=== PATIENT | male | born 1970 | race Caucasian/White ===

== ENCOUNTER 2017-09-18 16:19 | Emergency (ER) | payer BC ==
[2017-09-18 16:25] VITALS: TEMP 100.9
[2017-09-18 16:35] LABS: BASO % 0.3 % (0.0-2.0); EOS % 0.3 % (0-4.0); GRAN # 13.3 (1.4-6.5); GRAN % 87.2 % (42.2-75.2); HEMATOCRIT 45.2 % (42.0-52.0); HEMOGLOBIN 15.6 g/dl (13.5-18.0); LYMPH # 0.8 (1.2-3.4); LYMPH % 5.3 % (20.0-51.0); MEAN CELL VOLUME 86 fl (80.0-100.0); MEAN CORPUSCULAR HEMOGLOBIN 30 pg (27.0-31.0); MEAN CORPUSCULAR HGB CONC 35 g/dl (33.0-37.0); MEAN PLATELET VOLUME 10.5 fl (7.4-10.4); MONO % 6.6 % (1.7-9.3); PLATELET COUNT 203 K/mm3 (130-400); RED BLOOD COUNT 5.24 M/mm3 (4.20-5.60); WHITE BLOOD COUNT 15.2 K/mm3 (4.8-10.8)
[2017-09-18 16:40] LABS: INR 1.1 (0.8-3.0); PROTHROMBIN TIME 12.1 SECONDS (9.7-12.8)
[2017-09-18 16:55] LABS: ADJUSTED CALCIUM 9.7 mg/dL (8.4-10.2); ALANINE AMINOTRANSFERASE 27 U/L (21-72); ALBUMIN 4.8 gm/dL (3.5-5.0); ALKALINE PHOSPHATASE 97 U/L (50-136); ANION GAP 14 mmol/L (7-16); BILIRUBIN,TOTAL 0.9 mg/dL (0.0-1.0); BLOOD UREA NITROGEN 21 mg/dL (9-20); CALCIUM 10.3 mg/dL (8.4-10.2); CARBON DIOXIDE 19 mmol/L (22-30); CHLORIDE 107 mmol/L (98-107); CREATININE, serum 0.87 mg/dL (0.66-1.25); GLUCOSE 100 mg/dL (74-106); POTASSIUM 3.7 mmol/L (3.4-5.0); SODIUM 139 mmol/L (137-145)
[2017-09-18 16:57] LABS: INFLUENZA A NEGATIVE; INFLUENZA B NEGATIVE
[2017-09-18 17:17] LABS: B-TYPE NATRIURETIC PEPTIDE 38 pg/mL (0-125)
[2017-09-18 17:22] LABS: TROPONIN-I < 0.012 ng/mL (0.000-0.034)
[2017-09-18] MEDS ORDERED: LEVAQUIN 750MG750 M1 PO (17:51)
[2017-09-18] MEDS ORDERED: PROAIR HFA0.09 MG/AC IH (17:51)
[2017-09-18 17:57] VITALS: BP 133/83; PULSE 99
== END 2017-09-18 18:27 | disposition home or self-care (01) ==
LOC: COL.ER 16:19
PROVIDERS: Emergency Medicine
DX: J20.9 Acute bronchitis, unspecified (principal); R07.89 Other chest pain; F17.210 Nicotine dependence, cigarettes, uncomplicated
CPT/HCPCS: J1170; J1885; J7030; J8540

== ENCOUNTER 2020-11-29 11:11 | Day surgery (SDC) | payer OTHER ==
[~2020-11-29] VITALS: Ht 193 cm; Wt 101.6 kg
[~2020-11-29 11:11] MED LIST: LEVAQUIN 750MG750 M1 PO; PROAIR HFA0.09 MG/AC IH
[2020-11-29 12:20] VITALS: BP 140/90; PULSE 91; TEMP 97.9
[2020-11-29] MEDS ORDERED: NEURONTIN600 MG/TAB PO (12:36)
[2020-11-29] MEDS ORDERED: FLEXERIL 1010 MG/TAB PO (12:37)
[2020-11-29] MEDS ORDERED: RETIN A 0.01% TP (12:39)
[2020-11-29 14:32] VITALS: BP 120/81; PULSE 88
--- NOTE | 2020-11-29 14:32 | NUR ---
Patient returns to room 2 per cart from surgery accompanied by Luh KWOK and Jesus Hamilton CRNA. Patient is awake and alert. IV fluids infusing. Gauze 4x4 dressing over umbilical area dry. Temp 97.4 and room air sats 95%. Siderails up x2 and call light in reach.
[2020-11-29] MEDS ORDERED: NORCO 325 MG-51 TAB PO (14:35)
[2020-11-29 14:47] VITALS: BP 118/79; PULSE 64
--- NOTE | 2020-11-29 14:47 | NUR ---
Drinking water and denies pain or nausea. IV fluids infusing.
[2020-11-29 15:02] VITALS: BP 124/79; PULSE 87
--- NOTE | 2020-11-29 15:02 | NUR ---
Eating toast and drinking Sprite and water. Denies pain or nausea.
[2020-11-29 15:17] VITALS: BP 120/81; PULSE 68
--- NOTE | 2020-11-29 15:17 | NUR ---
IV discontinued site is free of redness. Notified ride of discharge time.
[2020-11-29 15:32] VITALS: BP 132/81; PULSE 87
--- NOTE | 2020-11-29 15:32 | NUR ---
Patient dresses self. Given dismissal instructions and voices understanding of these. Awaits ride home.
--- NOTE | 2020-11-29 15:57 | NUR ---
Dismissed to home driven by spouse and taken to vehicle per wheelchair by Delisa KWOK and assisted into vehilce with instructions in hand.
== END 2020-11-29 15:57 | disposition home or self-care (01) ==
LOC: SDCO 11:11
DX: K42.9 Umbilical hernia without obstruction or gangrene (principal); F17.210 Nicotine dependence, cigarettes, uncomplicated; Z20.828 Contact with and (suspected) exposure to other viral communicable diseases; Q05.9 Spina bifida, unspecified; Z79.899 Other long term (current) drug therapy; Z89.019 Acquired absence of unspecified thumb
CPT/HCPCS: C1781; J0690; J1885; J2250; J2704; J3010; J7120